=== PATIENT | female | born 1980 | race Caucasian/White ===

== ENCOUNTER 2022-06-26 20:37 | Emergency (ER) | payer OTHER ==
[2022-06-26 21:10] VITALS: BP 147/71; PULSE 91; RESP 16; TEMP 97.9; BMI 24.2
[2022-06-26] MEDS ORDERED: IBUPROFEN 600 MG TABLET (FP) PO ONE ×2 (21:27→21:33)
== END 2022-06-26 21:44 | disposition home or self-care (01) ==
LOC: FER 20:37
DX: S80.11XA Contusion of right lower leg, initial encounter (principal); S50.11XA Contusion of right forearm, initial encounter; V89.2XXA Person injured in unspecified motor-vehicle accident, traffic, initial encounter
CPT/HCPCS: 99283-25